=== PATIENT | female | born 1980 | race Caucasian/White ===

== ENCOUNTER 2020-09-04 06:50 | Day surgery (SDC) | payer SELFPAY ==
[2020-09-04] MEDS ORDERED: Acetaminophen 500 MG Tab PO ONE (07:15)
[2020-09-04] MEDS ORDERED: Dextrose 5%-Lactated Ringers 1,000 ML IV SCH (08:00)
[2020-09-04] MEDS ORDERED: Meropenem 500 MG SDV ONE (08:21)
[2020-09-04] MEDS ORDERED: Lidocaine 1% with EPINEPHrine 1:100,000 50 ML MDV ONE (08:21)
[2020-09-04] MEDS ORDERED: Bupivacaine 0.5% 50 ML MDV ONE (08:21)
--- NOTE | 2020-09-04 08:36 | PCM.HP.2 ---
H&P History of Present Illness - General Date of Service: 09/04/20 Source of Information: Patient History Limitations: Reports: No Limitations - History of Present Illness Initial Comments - Free Text/Narative: Gladis states that she is a pleasant 40 year old female who has had a breast lump which has been treated with antibiotics and would get better than come back again. She stopped breast feeding about 2 months ago and her breast infection continued. She was referred by Yoshi Peralta MD. Associated Symptoms: Reports: No Other Symptoms - Related Data Allergies/Adverse Reactions: Allergies Allergy/AdvReac Type Severity Reaction Status Date / Time No Known Allergies Allergy Verified 09/03/20 08:30 Home Medications: Home Meds cephALEXin [Keflex] 500 mg PO Q6H 09/03/20 [History] Past Medical History Genitourinary History: Reports: Other (See Below) Other Genitourinary History: abscess left breast [employer] History: Reports: - Infectious Disease History Infectious Disease History: Reports: Chicken Pox, Pertussis (Whooping Cough) - Past Surgical History Female Surgical History: Reports: None Dermatological Surgical History: Reports: None Social & Family History - Family History Cardiac: Reports: CAD Neurological: Reports: CVA Oncologic: Reports: Colon - Tobacco Use Tobacco Use Status *Q: Never Tobacco User - Caffeine Use Caffeine Use: Reports: Coffee - Recreational Drug Use Recreational Drug Use: No H&P Review of Systems - Review of Systems: Review Of Systems: Comprehensive ROS is negative, except as noted in HPI. Exam - Exam Exam: See Below - Vital Signs Vital Signs: Last Vital Signs Temp 97.5 F 09/04/20 07:42 Pulse 75 09/04/20 07:42 Resp 18 09/04/20 07:42 BP 125/78 09/04/20 07:42 Pulse Ox 97 09/04/20 07:42 Weight: 190 lb - Exam General: Alert, Oriented, Cooperative HEENT: PERRLA, Conjunctiva Clear Neck: Supple, Trachea Midline Lungs: Clear to Auscultation, Normal Respiratory Effort Cardiovascular: Regular Rate, Regular Rhythm GI/Abdominal Exam: Soft, Non-Tender (Female) Exam: Deferred Rectal (Female) Exam: Deferred Back Exam: Normal Inspection Extremities: Normal Inspection, Normal Range of Motion Skin: Warm, Dry, Intact Neurological: Cranial Nerves Intact Neuro Extensive - Mental Status: Alert, Oriented x3, Normal Mood/Affect Neuro Extensive - Motor, Sensory, Reflexes: CN II-XII Intact, Normal Gait, Normal Reflexes Psychiatric: Alert, Normal Affect, Normal Mood - Patient Data Lab Results Last 24 hrs: Laboratory Results - last 24 hr 09/03/20 09/04/20 09/04/20 Range/Units 07:10 07:18 07:18 WBC 8.9 (4.5-11.0) K/uL RBC 4.71 (3.30-5.50) M/uL Hgb 13.0 (12.0-15.0) g/dL Hct 40.2 (36.0-48.0) % MCV 85 (80-98) fL MCH 28 (27-31) pg MCHC 32 (32-36) % Plt Count 321 (150-400) K/uL Sodium 144 (140-148) mmol/L Potassium 3.8 (3.6-5.2) mmol/L Chloride 104 (100-108) mmol/L Carbon Dioxide 29 (21-32) mmol/L Anion Gap 11.3 (5.0-14.0) mmol/L BUN 12 (7-18) mg/dL Creatinine 0.8 (0.6-1.0) mg/dL Est Cr Clr Drug Dosing 75.78 mL/min Estimated GFR (MDRD) > 60 (>60) Glucose 105 (74-106) mg/dL Calcium 9.4 (8.5-10.1) mg/dL Urine HCG, Qual Negative Result Diagrams: 09/04/20 07:18 09/04/20 07:18 Sepsis Event Note - Focused Exam Vital Signs: Vital Signs Temp Pulse Resp BP Pulse Ox 09/04/20 07:42 97.5 F 75 18 125/78 97 - Problem List (1) Left breast mass SNOMED Code(s): 73042744 ICD Code: N63.20 - UNSPECIFIED LUMP IN THE LEFT BREAST, UNSPECIFIED QUADRANT Status: Acute Current Visit: Yes Problem List Initiated/Reviewed/Updated: Yes Orders Last 24hrs: Active Orders 24 hr Category Date Time Status Guide Intraoperative [US] Routine Exams 09/04/20 09:30 Ordered CA 27.29 Stat Lab 09/04/20 07:18 Received Dextrose 5%-Lactated Ringers 1,000 ml Med 09/04/20 08:00 Active IV ASDIRECTED Linezolid [Zyvox] 600 mg Med 09/04/20 09:15 Active Premix Bag 1 bag IV ONETIME Medication Orders Dextrose/Lactated Ringer's (Dextrose 5%-Lactated Ringers) 1,000 mls @ 100 mls/hr IV ASDIRECTED TYLER Last Admin: 09/04/20 08:10 Dose: 100 mls/hr Documented by: MADDIE Linezolid 600 mg/ Premix 300 mls @ 300 mls/hr IV ONETIME ONE Stop: 09/04/20 10:14 Scheduled for: Excision of Left Breast Mass and Infection with Intraoperative Ultrasound - General Anesthesia - Deshaun Cancino MD 09/04/2020 After preoperative evaluation and discussion of possible risks and benefits patient wishes to proceed with surgical procedure. Grisel Queen 09/04/2020 - Mortality Measure Prognosis:: Good
[2020-09-04] MEDS ORDERED: Rocuronium 50 MG/5 ML Vial ONE (08:43)
[2020-09-04] MEDS ORDERED: Glycopyrrolate 0.2 MG/ML 5 ML MDV ONE (08:43)
[2020-09-04] MEDS ORDERED: Dexamethasone 4 MG/ML SDV ONE (08:43)
[2020-09-04] MEDS ORDERED: Ondansetron 4 MG/2 ML SDV ONE (08:43)
[2020-09-04] MEDS ORDERED: fentaNYL 250 MCG/5 ML SDV ONE (08:43)
[2020-09-04] MEDS ORDERED: Propofol 200 MG/20 ML SDV ONE (08:43)
[2020-09-04] MEDS ORDERED: Neostigmine Methylsulfate 1 MG/ML 5 ML Syringe ONE (08:43)
[2020-09-04] MEDS ORDERED: Linezolid 600 MG in Premix Bag 1 BAG IV ONE (09:15)
[2020-09-04] MEDS ORDERED: fentaNYL 100 MCG/2 ML SDV ONE (09:34)
[2020-09-04] MEDS ORDERED: HYDROmorphone 2 MG Tab PO PRN (11:00)
--- NOTE | 2020-09-10 17:57 | OR ---
DATE OF PROCEDURE: 09/04/2020 SURGEON: Deshaun Cancino MD PREOPERATIVE DIAGNOSIS: Extensive mastitis with multiple cutaneous sinus tracts and multiple abscesses, left breast. POSTOPERATIVE DIAGNOSIS: Extensive mastitis with multiple cutaneous sinus tracts and multiple abscesses, left breast. OPERATIVE PROCEDURE: Left partial mastectomy (). ANESTHESIA: General. INDICATIONS FOR PROCEDURE: This is a 40-year-old female presenting with several week history of inflammation and drainage from the medial aspect of the left breast. Ultrasound had been obtained, which showed the mass effects in the upper and lower aspects of the medial aspect of left breast. The patient has multiple sinus tracts coming out of the area of abscess formation with purulent drainage. She has been on some Keflex over the last few days. The plan is to proceed with wide excision of this area for diagnostic purposes as well as hopefully to eliminate any underlying infectious process. The potential risks of the procedure were reviewed with the patient and and they were made aware as much as possible that this will be a large excision with a large open wound that will take significant amount of time for subsequent healing and that there is possibility of underlying malignancy, which in this case would require a subsequent mastectomy. Potential risks of the procedure otherwise including further bleeding and infection or other obvious cosmetic deformity were reviewed, and the patient and wished to proceed. DETAILS OF PROCEDURE: The patient was taken to the operating room, placed in a supine position. After general endotracheal anesthesia was induced, the left breast and surrounding areas were prepped and draped. Ultrasound was then obtained, which confirmed the areas of more of a mass effect on the superior and inferior aspects of the medial aspect of the left breast, more or less at the two ends of the area of generalized inflammation. This allowed marking out of the excisional site, which included a wide area of skin as well as the underlying subcutaneous tissue and breast tissue. After this had been marked out, the incision was made and carried down through the skin and subcutaneous tissue and the areas of involvement were then excised. This extended well into the breast tissue. It did not appear to come up into the area of the nipple-areolar complex, and in general, all of the inflamed tissue was removed. Multiple cultures were obtained. Initial Gram stains failed to show any obvious organisms, although this was obviously an infectious process. There was some pasty type material present within the tissue and this along with the chronic sinus tracts makes one think this could possibly be actinomycosis type infection, but obviously the cultures and subsequent histologic evaluation will clarify that. At this point, all areas of inflammation had been removed. This resulted in roughly a third of the breast tissue being removed, all of this medial to the nipple-areolar complex. The wound was then packed open with Iodoform gauze after being anesthetized with 1% lidocaine and additional dressings were applied. The patient was taken to the recovery room in satisfactory condition. The patient has one more day of Keflex and will continue that and then was also given instruction to take Tylenol and/or ibuprofen for pain and given Dilaudid 2 mg q.4 hours p.r.n. pain #25. She will be seen by surgery nurses tomorrow with the and a female medical photographer is encouraged to come as well to initiate instructions regarding wound care. Deshaun Cancino MD /[id number]
== END 2020-09-04 13:10 | disposition home or self-care (01) ==
LOC: JP.SDS 06:50
PROVIDERS: ATTEND Surgery
DX: N61.1 Abscess of the breast and nipple (principal); N64.89 Other specified disorders of breast
CPT/HCPCS: 19301; 36415; 76998; 80048; 81025; 85027; 86300; 87070; 87075; 87205; 88304; 88312; A9270; J1100; J2020; J2405; J2704; J2710; J3010; J3490; J7121; J2185

== ENCOUNTER 2020-09-18 18:51 | Emergency (ER) | payer SELFPAY ==
--- NOTE | 2020-09-18 19:32 | EDM.PDOC ---
ED HPI GENERAL MEDICAL PROBLEM - General Chief Complaint: Fever Stated Complaint: HAD SURGERY WITH CANCINO 2WKS AGO, FEVER Time Seen by Provider: 09/18/20 19:22 Source of Information: Reports: Patient, Family, Old Records, RN Notes Reviewed History Limitations: Reports: No Limitations - History of Present Illness INITIAL COMMENTS - FREE TEXT/NARRATIVE: 40-year-old female presents emergency department today with fever, she is postop 14 days breast mass status post resection with healing by second intention. Have been changing the dressing at home they have noticed increasing drainage and then today she spiked a fever up to 102 was initially started on antibiotics of Keflex however stopped the medication early because of adverse reactions. - Related Data Allergies Allergy/AdvReac Type Severity Reaction Status Date / Time No Known Allergies Allergy Verified 09/18/20 19:08 Home Meds: Home Meds NK [No Known Home Meds] 09/18/20 [History] Past Medical History Genitourinary History: Reports: Other (See Below) Other Genitourinary History: abscess left breast [employer] History: Reports: - Infectious Disease History Infectious Disease History: Reports: Chicken Pox, Pertussis (Whooping Cough) - Past Surgical History Female Surgical History: Reports: None Dermatological Surgical History: Reports: None Social & Family History - Family History Cardiac: Reports: CAD Neurological: Reports: CVA Oncologic: Reports: Colon - Tobacco Use Tobacco Use Status *Q: Never Tobacco User - Caffeine Use Caffeine Use: Reports: Coffee ED ROS GENERAL - Review of Systems Review Of Systems: See Below Constitutional: Reports: No Symptoms Respiratory: Reports: No Symptoms Cardiovascular: Reports: No Symptoms GI/Abdominal: Reports: No Symptoms Skin: Reports: Wound ED EXAM, SEPSIS - Physical Exam Exam: See Below Text/Narrative:: Examination the wound I do not appreciate any erythema the wound is healing by second intention tissue underneath appears healthy and pink there is a mild amount of drainage present in the dressing, it is not warm to the touch Exam Limited By: No Limitations General Appearance: Alert, WD/WN, No Apparent Distress Respiratory/Chest: No Respiratory Distress, Lungs Clear, Normal Breath Sounds, No Accessory Muscle Use, Chest Non-Tender Cardiovascular: Regular Rate, Rhythm, No Murmur Course - Vital Signs Last Recorded V/S: Last Vital Signs Temp 99.1 F 09/18/20 19:06 Pulse 109 H 09/18/20 19:06 Resp 16 09/18/20 19:06 BP 156/96 H 09/18/20 19:06 Pulse Ox 97 09/18/20 19:06 - Orders/Labs/Meds Orders: Active Orders 24 hr Category Date Time Status Severe Sepsis Onset Time [OM.PC] Stat Oth 09/18/20 19:29 Ordered Labs: Laboratory Tests 09/18/20 09/18/20 09/18/20 Range/Units 19:42 19:42 19:42 WBC 12.3 H (4.5-11.0) K/uL RBC 4.49 (3.30-5.50) M/uL Hgb 12.6 (12.0-15.0) g/dL Hct 38.7 (36.0-48.0) % MCV 86 (80-98) fL MCH 28 (27-31) pg MCHC 33 (32-36) % Plt Count 356 (150-400) K/uL Neut % (Auto) 81 H (36-66) % Lymph % (Auto) 11 L (24-44) % Amador % (Auto) 7 H (2-6) % Eos % (Auto) 1 L (2-4) % Baso % (Auto) 0 (0-1) % Sodium 142 (140-148) mmol/L Potassium 3.9 (3.6-5.2) mmol/L Chloride 102 (100-108) mmol/L Carbon Dioxide 27 (21-32) mmol/L Anion Gap 13.1 (5.0-14.0) mmol/L BUN 10 (7-18) mg/dL Creatinine 0.9 (0.6-1.0) mg/dL Est Cr Clr Drug Dosing 70.32 mL/min Estimated GFR (MDRD) > 60 (>60) Glucose 110 H (74-106) mg/dL Lactic Acid 1.0 (0.4-2.0) mmol/L Calcium 10.4 H (8.5-10.1) mg/dL Total Bilirubin 0.3 (0.2-1.0) mg/dL AST 21 (15-37) U/L ALT 43 (12-78) U/L Alkaline Phosphatase 84 (46-116) U/L C-Reactive Protein (0.0-0.3) mg/dL Total Protein 7.7 (6.4-8.2) g/dL Albumin 3.7 (3.4-5.0) g/dL Globulin 4.0 H (2.3-3.5) g/dL Albumin/Globulin Ratio 0.9 L (1.2-2.2) Procalcitonin ng/mL 09/18/20 09/18/20 Range/Units 19:42 19:42 WBC (4.5-11.0) K/uL RBC (3.30-5.50) M/uL Hgb (12.0-15.0) g/dL Hct (36.0-48.0) % MCV (80-98) fL MCH (27-31) pg MCHC (32-36) % Plt Count (150-400) K/uL Neut % (Auto) (36-66) % Lymph % (Auto) (24-44) % Amador % (Auto) (2-6) % Eos % (Auto) (2-4) % Baso % (Auto) (0-1) % Sodium (140-148) mmol/L Potassium (3.6-5.2) mmol/L Chloride (100-108) mmol/L Carbon Dioxide (21-32) mmol/L Anion Gap (5.0-14.0) mmol/L BUN (7-18) mg/dL Creatinine (0.6-1.0) mg/dL Est Cr Clr Drug Dosing mL/min Estimated GFR (MDRD) (>60) Glucose (74-106) mg/dL Lactic Acid (0.4-2.0) mmol/L Calcium (8.5-10.1) mg/dL Total Bilirubin (0.2-1.0) mg/dL AST (15-37) U/L ALT (12-78) U/L Alkaline Phosphatase (46-116) U/L C-Reactive Protein 6.46 H (0.0-0.3) mg/dL Total Protein (6.4-8.2) g/dL Albumin (3.4-5.0) g/dL Globulin (2.3-3.5) g/dL Albumin/Globulin Ratio (1.2-2.2) Procalcitonin < 0.05 ng/mL Meds: Medications Discontinued Medications Generic Name Dose Route Start Last Admin Trade Name Freq PRN Reason Stop Dose Admin Mupirocin 2 gm 09/18/20 21:01 Mupirocin Oint 22 Gm Tube TOP 09/18/20 21:02 ONETIME ONE Departure - Departure Time of Disposition: 21:09 Disposition: Home, Self-Care 01 Condition: Fair Clinical Impression: Overgranulation of secondary intention surgical wound - Discharge Information Referrals: PCP,None [Primary Care Provider] - Forms: ED Department Discharge Additional Instructions: Use this topical antibiotic with dressing changes a thin layer can be spread inside the wound with dressing changes please keep your follow-up appointment with Dr. Cancino tomorrow Sepsis Event Note (ED) - Evaluation Sepsis Screening Result: Possible Sepsis Risk - Focused Exam Vital Signs: Vital Signs Temp Pulse Resp BP Pulse Ox 09/18/20 19:06 99.1 F 109 H 16 156/96 H 97 - My Orders Last 24 Hours: My Active Orders 09/18/20 19:29 Severe Sepsis Onset Time [OM.PC] Stat - Assessment/Plan Last 24 Hours: My Active Orders 09/18/20 19:29 Severe Sepsis Onset Time [OM.PC] Stat Plan: Assessment Acuity = acute Site and laterality = left breast wound healing by second intention Etiology = abscess postoperative Manifestations = none Location of injury = Home Lab values = CBC reveals WBC elevated 12.3 lactic acid within normal limits CMP unremarkable CRP elevated 6.4 [address] Call discussed case Dr. Cancino at 2100 he will see them in clinic tomorrow, recommended Bactroban topical ointment with dressing changes inside the This note was dictated using [employer] voice recognition software please call with any questions on syntax or grammar.
[2020-09-18] MEDS ORDERED: Mupirocin Oint 22 GM Tube TOP ONE (21:01)
[2020-09-18] MEDS ORDERED: Mupirocin Oint 22 GM Tube ONE (21:07)
== END 2020-09-18 21:18 | disposition home or self-care (01) ==
LOC: JP.ED 18:51
DX: T81.89XA Other complications of procedures, not elsewhere classified, initial encounter (principal)
CPT/HCPCS: 36415; 80053; 83605; 84145; 85025; 86140; 99284; A9270-GY